=== PATIENT | female | born 1985 | race Caucasian/White ===

== ENCOUNTER 2021-03-24 16:32 | Emergency (ER) | payer OTHER ==
[~2021-03-24] VITALS: Ht 167.6 cm; Wt 54.4 kg
[2021-03-24 17:05] LABS: HEMATOCRIT 36.1 % (31.2-41.9); MEAN CORPUSCULAR HEMOGLOBIN 28.5 uug (24.7-32.8); MEAN CORPUSCULAR VOLUME 83.6 fL (75.5-95.3); PLATELET COUNT (AUTO) 217 K/uL (179-408)
[2021-03-24 17:12] LABS: CARBON DIOXIDE 27 mmol/L (21-32); CHLORIDE 104 mmol/L (98-107); CREATININE 0.6 mg/dL (0.6-1.3); GLUCOSE 102 mg/dL (74-106); POTASSIUM 3.8 mmol/L (3.5-5.1); UREA NITROGEN, BLOOD 15 mg/dL (7-18)
[2021-03-24 17:28] LABS: ALANINE AMINOTRANSFERASE 20 U/L (14-59); ALKALINE PHOSPHATASE 71 U/L (50-136); ASPARTATE AMINOTRANSFERASE 12 U/L (15-37); BILIRUBIN,DIRECT 0.1 mg/dL (0.0-0.2); BILIRUBIN,TOTAL 0.2 mg/dL (0.2-1.0); TOTAL PROTEIN, SERUM 6.9 g/dL (6.4-8.2)
[2021-03-24 17:29] LABS: ACETAMINOPHEN < 2.0 ug/mL (10-30)
[2021-03-24] MEDS ORDERED: PHENYTOIN SODIUM 250 MG/5 ML VIAL IV ONE (17:38)
[2021-03-24] MEDS: PHENYTOIN SODIUM IV 1,000 MG in IV NORMAL SALINE 100 ML IV ONE ×2 (17:40→17:49)
--- NOTE | 2021-03-24 17:49 | NUR ---
PT IS IN ROOM WITH [employer] OFFICERS. DR JIMENEZ EVALUATED THE PT.
[2021-03-24] MEDS ORDERED: PHENYTOIN SODIUM EXTENDED 100 MG CAPSULE.SA PO ONE ×2 (18:00→18:06)
[2021-03-24 18:10] LABS: ETHANOL < 3 MG/DL (0-0)
--- NOTE | 2021-03-24 18:25 | NUR ---
PT WAS D/C'd TO HOME. D/C INSTRUCTIONS GIVEN TO THE PT BY DR JIMENEZ.
[2021-03-24 18:28] VITALS: BP 118/76
== END 2021-03-24 18:36 | disposition home or self-care (01) ==
LOC: ER 16:33
DX: T40.601A Poisoning by unspecified narcotics, accidental (unintentional), initial encounter (principal); R41.82 Altered mental status, unspecified; Y92.019 Unspecified place in single-family (private) house as the place of occurrence of the external cause; G40.909 Epilepsy, unspecified, not intractable, without status epilepticus; Z91.14 Patient's other noncompliance with medication regimen
CPT/HCPCS: 36415; 70450; 80048; 80076; 80185; 80299; 80320; 84484; 84702; 85025; 93005; 99285; J1165; 70030-TC; G0480; J3490

== ENCOUNTER 2022-12-29 06:28 | Emergency (ER) | payer OTHER ==
[~2022-12-29] VITALS: Ht 154.9 cm; Wt 55.3 kg
[2022-12-29 06:38] VITALS: O2SAT 98
[2022-12-29] MEDS ORDERED: IBUPROFEN 800 MG TABLET ONE (07:29)
[2022-12-29] MEDS ORDERED: predniSONE 20 MG TABLET PO ONE (07:30)
[2022-12-29] MEDS ORDERED: IBUPROFEN 800 MG TABLET PO ONE (07:30)
[2022-12-29] MEDS ORDERED: predniSONE 20 MG TABLET ONE (07:36)
== END 2022-12-29 08:26 | disposition left against medical advice (07) ==
LOC: ER 06:28
DX: M13.172 Monoarthritis, not elsewhere classified, left ankle and foot (principal); F17.210 Nicotine dependence, cigarettes, uncomplicated
CPT/HCPCS: 99281; J7512; A4663